=== PATIENT | male | born 1940 | race Caucasian/White ===

== ENCOUNTER 2017-01-29 09:50 | Emergency (ER) | payer MEDICARE, OTHER ==
--- NOTE | 2017-01-29 10:13 | ED ---
Throat Pain/Nasal Congestion - History of Current Complaint Chief Complaint: EDGeneral Time Seen by Provider: 01/29/17 10:05 - Allergies/Home Medications Allergies/Adverse Reactions: Allergies Allergy/AdvReac Type Severity Reaction Status Date / Time bee venom Allergy Mild Itching Uncoded 01/29/17 09:53 PMH/Surg Hx/FS Hx/Imm Hx Endocrine/Hematology History: Denies: Hx Diabetes, Hx Systemic Lupus Erythematosus Cardiovascular History: Denies: Hx Congestive Heart Failure, Hx Hypertension, Hx Pacemaker/ICD Respiratory History: Denies: Hx Asthma History: Reports: Other Problems/Disorders - prostatectomy Denies: Hx Dialysis, Hx Renal Disease Musculoskeletal History: Reports: Hx Arthritis - knees Denies: Hx Rheumatoid Arthritis, Hx Osteoporosis Sensory History: Reports: Hx Contacts or Glasses Denies: Hx Hearing Aid Opthamlomology History: Reports: Hx Contacts or Glasses Psychiatric History: Denies: Hx Panic Disorder - Cancer History Cancer Type, Location and Year: 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 PROSTATE CA- 2009 Hx Chemotherapy: Yes - Surgical History Surgery Procedure, Year, and Place: Prostatectomy 2009;. TONSILS (AGE 6);. PORT PLACEMENT WITH REMOVAL;. COLLAPSED LUNG W/ CHEST TUBES;. LYMPH NODE REMOVED FROM NECK; Infectious Disease History: Yes Infectious Disease History: Denies: Traveled Outside the [place] in Last 30 Days - Social History Alcohol Use: Rare Substance Use Type: Reports: None Smoking Status (MU): Never Smoked Tobacco Physical Exam Vital Signs On Initial Exam: Initial Vitals Temp Pulse Resp BP Pulse Ox 97.2 F 77 16 133/74 100 01/29/17 09:54 01/29/17 09:54 01/29/17 09:54 01/29/17 09:54 01/29/17 09:54 Diagnostics - Vital Signs Vital Signs Temp Pulse Resp BP Pulse Ox 01/29/17 09:54 97.2 F 77 16 133/74 100 - Laboratory Result Diagrams: 01/29/17 10:29 01/29/17 10:29 Lab Statement: Any lab studies that have been ordered have been reviewed, and results considered in the medical decision making process. - Radiology chest Xray Interpretation: No Acute Changes - NO EVIDENCE FOR ACTIVE CARDIOPULMONARY DISEASE. Radiology Interpretation Completed By: Radiologist - EKG EKG Cardiac Rate: NL EKG Rhythm: Sinus Rhythm ST Segment: Normal Ectopy: None EKG Interpretation: NSR, no stemi EKG Comparison: No Significant Change EENT Course/Dx - Diagnoses Provider Diagnoses: Bronchitis, Upper respiratory infection Discharge - Discharge Plan Condition: Stable Disposition: HOME Prescriptions: Acetaminop/Codeine 30 MG TAB* [Tylenol/Codeine 30 MG TAB*] 1 tab PO BEDTIME PRN #10 tab MDD 1 PRN Reason: Cough Benzonatate CAP* [Tessalon 100 MG CAP*] 100 mg PO TID #30 cap Fluticasone NASAL SPRAY 50MCG* [Flonase NASAL SPRAY 50MCG*] 2 spray BOTH NARES DAILY #1 btl Patient Education Materials: Upper Respiratory Infection (ED), Acute Bronchitis (ED) Referrals: Jean Marie Santizo MD [Primary Care Provider] - Additional Instructions: You appear to have a viral upper respiratory/bronchitis infection. Take prescribed medication as directed. Also recommend taking Mucinex-D daily, along with doing saline rinses, salt water gargles, taking zicam and drinking emergen-c (available over the counter). Extra pillow at bedtime. Hot showers. Increase fluid intake. Get plenty of rest. Any new or worsening symptoms (fever, difficulty breathing, worsening symptoms) please seek medical attention immediately. You will be called about urine culture results if positive. Follow up with PCP for re-check and evaluation.
[2017-01-29 10:37] LABS: Hematocrit 40 % (42-52); Hemoglobin 14.1 g/dl (14.0-18.0); Mean Corpuscular HGB Conc 36 g/dl (31-36); Mean Corpuscular Hemoglobin 34 pg (27-31); Mean Corpuscular Volume 95 fL (80-94); Mean Platelet Volume 7 um3 (7.4-10.4); Red Blood Count 4.19 10^6/ul (4.0-5.4); Red Cell Distribution Width 13 % (10.5-15); White Blood Count 6.1 10^3/ul (3.5-10.8)
[2017-01-29 10:54] LABS: Albumin 3.8 g/dL (3.2-5.2); BUN/Creatinine Ratio 15.4 (8-20); Calcium 9.3 mg/dL (8.6-10.3); EGFR African American 104.2 (>60); Globulin 2.8 g/dL (2-4); Potassium 3.6 mmol/L (3.5-5.0); Total Bilirubin 0.6 mg/dL (0.2-1.0); Total Protein 6.6 g/dL (6.4-8.9)
--- NOTE | 2017-01-29 11:05 | RAD ---
INDICATION: Chest congestion, pain and cough. COMPARISON: Comparison is made with prior chest x-ray study from October 14, 2014. TECHNIQUE: Dual-energy PA and lateral views of the chest were obtained. FINDINGS: The heart is within normal limits in size. Mediastinal and hilar contours appear within normal limits. The lungs are clear. No pleural effusion is present. IMPRESSION: NO EVIDENCE FOR ACTIVE CARDIOPULMONARY DISEASE.
[2017-01-29 12:22] VITALS: BP 156/79
[2017-01-29 12:39] LABS: Urine Bacteria 3+ (Absent); Urine Bilirubin Negative (Negative); Urine Glucose Negative (Negative); Urine Nitrite Positive (Negative)
[2017-01-29] MEDS ORDERED: Morphine INJ* 2 MG/ML 1 ML CARPUJECT IV ONE (15:37)
[2017-01-29] MEDS ORDERED: Orphenadrine Citrate IV* 30 MG/ML 2 ML VIAL IV ONE (15:37)
[2017-01-29] MEDS ORDERED: Dexamethasone IV* 10 MG in NS 0.9% 50 ML* 50 ML IVPB ONE (15:37)
[2017-01-29] MEDS ORDERED: Ondansetron INJ* 2 MG/ML VIAL IV ONE (15:37)
--- NOTE | 2017-02-01 08:40 | PN ---
Progress Note - Progress Note Date of Service: 01/29/17 Note: Urine culture grew E. Coli Patient called today and placed on Cipro x 5 days. He is OK with plan and denies any symptoms. Nothing further at this time. Charlette Lowery PA-C
== END 2017-01-29 12:32 | disposition home or self-care (01) ==
LOC: ED 09:50
DX: J40 Bronchitis, not specified as acute or chronic (principal)
CPT/HCPCS: 36415; 71020; 80053; 81003; 81015; 83605; 84484; 85025; 87077; 87086; 87186; 87899; 93005; 99282

== ENCOUNTER 2017-12-14 07:02 | Day surgery (SDC) | payer MEDICARE, OTHER ==
[~2017-12-14 07:02] MED LIST: Acetaminophen TAB* 325 MG PO PRN; Buffered Lidocaine 0.9% SYRIN* 5 ML/SYR SYRINGE INTRADERM ONE; mitoMYcin 0.2 MG (0.02%) in Sterile Water for Inj* 1 ML OPHTHALMIC SCH
[2017-12-14] MEDS ORDERED: fentaNYL* 50 MCG/ML 2 ML VIAL (100 MCG VIAL) ONE (08:25)
[2017-12-14] MEDS ORDERED: Midazolam* 1 MG/ML 2 ML VIAL (2 MG) ONE (08:30)
[2017-12-14 09:31] VITALS: BP 133/65
[2017-12-14] MEDS ORDERED: Lidocaine 1%* 5 ML VIAL ONE (11:54)
[2017-12-14] MEDS ORDERED: Lidocaine 2% EPI 1:200000 MPF*10-20 ML VIAL ONE (11:54)
[2017-12-14] MEDS ORDERED: Proparacaine 0.5% OPHTH.SOL* 15 ML BTL ONE (11:54)
[2017-12-14] MEDS ORDERED: Povidone Iodine 5% OPTH* 30 ML BTL ONE (11:54)
[2017-12-14] MEDS ORDERED: Neomycin/Polymy/Dex OPTH.SUSP* MAXITROL 0.1% 5 ML ONE (11:54)
[2017-12-14] MEDS ORDERED: Acetylcholine 1:100 OPTH* OPHTH.SOLN ONE (15:13)
--- NOTE | 2017-12-15 02:37 | OP ---
DATE OF OPERATION: 12/14/17 [facility] DATE OF : 40 SURGEON: Thomas Glez MD ANESTHESIA: Local MAC. PRE-OP DIAGNOSIS: Uncontrolled glaucoma, left eye. POST-OP DIAGNOSIS: Uncontrolled glaucoma, left eye. OPERATIVE PROCEDURE: Insertion of XEN stent, left eye. COMPLICATIONS: None. DESCRIPTION OF PROCEDURE: The patient was prepped and draped in the usual sterile fashion. Lid speculum was placed on the left eye. A paracentesis incision made at the 1 o'clock position with the 75 blade. Anterior chamber was irrigated with 1% non-preservative intracameral lidocaine and Healon. A 1.8 mm keratome was used to make a clear corneal incision at 5 o'clock position. Mitomycin-C 0.2 mg/mL 0.1 mL injected subconjunctivally superiorly. A XEN stent was placed at the 11 o'clock position without difficulty. Miochol instilled into the anterior chamber and the Healon irrigated out. Topical Maxitrol drops were given. [id number]/[facility] #: [id number] [facility]
== END 2017-12-14 09:49 | disposition home or self-care (01) ==
LOC: OREAST 07:02
PROVIDERS: ATTEND Specialist
DX: H40.1122 Primary open-angle glaucoma, left eye, moderate stage (principal); H25.13 Age-related nuclear cataract, bilateral; K21.9 Gastro-esophageal reflux disease without esophagitis; E78.00 Pure hypercholesterolemia, unspecified; Z85.72 Personal history of non-Hodgkin lymphomas; Z85.46 Personal history of malignant neoplasm of prostate; M19.90 Unspecified osteoarthritis, unspecified site
CPT/HCPCS: A9270-GY; C1725; J2250; J3010; J9280

== ENCOUNTER 2018-08-16 08:51 | Day surgery (SDC) | payer MEDICARE, OTHER ==
[~2018-08-16 08:51] MED LIST changes: -Buffered Lidocaine 0.9% SYRIN* 5 ML/SYR SYRINGE INTRADERM ONE; +Buffered Lidocaine 1% SYRIN* 1 ML/SYRINGE INTRADERM ONE; -mitoMYcin 0.2 MG (0.02%) in Sterile Water for Inj* 1 ML OPHTHALMIC SCH
[2018-08-16] MEDS ORDERED: acetaZOLAMIDE TAB* 250 MG ONE (09:56)
[2018-08-16] MEDS ORDERED: Cyclopentolate 1% OPTH.SOL* 2 ML BTL ONE (09:56)
[2018-08-16] MEDS ORDERED: Ketorolac 0.5% OPHTH (NF) 0.5 % 5 ML BTL ONE (09:56)
[2018-08-16] MEDS ORDERED: Neomycin/Polymy/Dex OPTH.SUSP* MAXITROL 0.1% 5 ML ONE (09:56)
[2018-08-16] MEDS ORDERED: Lidocaine 2% EPI 1:200000 MPF*10-20 ML VIAL ONE (09:56)
[2018-08-16] MEDS ORDERED: Povidone Iodine 5% OPTH* 30 ML BTL ONE (09:56)
[2018-08-16] MEDS ORDERED: Phenylephrine OPHTH SOL 2.5%* 2 ML ONE (09:56)
[2018-08-16] MEDS ORDERED: Proparacaine 0.5% OPHTH.SOL* 15 ML BTL ONE (09:56)
[2018-08-16] MEDS ORDERED: Lidocaine 1%* 5 ML VIAL ONE (09:56)
[2018-08-16] MEDS ORDERED: Midazolam* 1 MG/ML 5 ML VIAL (5 MG) ONE (10:47)
[2018-08-16 12:24] VITALS: BP 142/68
--- NOTE | 2018-08-16 13:58 | OP ---
OPERATIVE NOTE: DATE OF OPERATION: 08/16/18 DATE OF : 40 SURGEON: Thomas Glez M.D. PREOPERATIVE DIAGNOSIS: Cataract, left eye. POSTOPERATIVE DIAGNOSIS: Cataract, left eye. OPERATIVE PROCEDURE: Extracapsular cataract extraction with intraocular lens implant left eye. PROCEDURE: The patient was brought to the operating room after being given 1/2% Alcaine with epineph rine drops in the preoperative area. The eye was prepped and draped in the usual sterile fashion. S terile drape and eyelid speculum were placed. Again, topical 1/2% Alcaine with epinephrine was given . A paracentesis incision was made at the 3 o'clock position with the No.75 blade. Clear cornea inc ision 2.2 x 2.2-mm was created at the 6 o'clock position starting at the anterior limbus using the 2. 2-mm keratome. The anterior chamber was irrigated with 0.4 mL of 1% non-preservative intracameral li docaine and filled with DisCoVisc. A capsulorrhexis was completed using the cystotome and the Utrata forceps. Hydrodissection was performed with balanced salt solution. The lens nucleus was removed wi th the Phacoemulsification handpiece without incident. Cortex was removed with the irrigation-aspira tion handpiece. The capsular bag was re-inflated using DisCoVisc and an [id number] implant was insert ed with the shooter. The irrigation-aspiration handpiece was used to remove all residual DisCoVisc. The eye was refilled with balanced salt solution and the wound checked and found to be watertight. Topical Maxitrol drops were given. A Malyugin ring was used to dilate the pupil prior to capsulorrhexis because the pupil was only 3 mm. This was removed after the insertion of the lens. Indication for complex cataract surgery: Pupil abnormalities requiring pupil dilation device. [id number]/[facility] #: [id number]
== END 2018-08-16 12:30 | disposition home or self-care (01) ==
LOC: OREAST 08:51
PROVIDERS: ATTEND Specialist
DX: H25.812 Combined forms of age-related cataract, left eye (principal); H21.562 Pupillary abnormality, left eye; H40.1122 Primary open-angle glaucoma, left eye, moderate stage; H40.1111 Primary open-angle glaucoma, right eye, mild stage; Z85.46 Personal history of malignant neoplasm of prostate; M19.90 Unspecified osteoarthritis, unspecified site; Z85.72 Personal history of non-Hodgkin lymphomas
CPT/HCPCS: A9270-GY; J2250; V2632